=== PATIENT | male | born 1990 | race Caucasian/White ===

== ENCOUNTER 2016-07-14 22:41 | Emergency (ER) | payer MEDICARE ==
[2016-07-14 23:43] LABS: BASOPHILS 0.3 % (0-2); HEMATOCRIT 43.7 % (42.0-54.0); HEMOGLOBIN 15.1 g/dL (13.5-17.5); IMMATURE GRANULOCYTES 0.2 % (0-5); LYMPHOCYTES 54.8 % (15-50); MCHC 34.6 g/dL (31.0-37.0); MCV 86.7 fL (80.0-100.0); MEAN PLATELET VOLUME 11.5 fL (7.4-10.4); NEUTROPHILS 33.7 % (40-80); PLATELET COUNT 166 10x3/uL (130-400); RBC 5.04 10x6/uL (4.20-6.10); RDW 12.4 % (11.5-14.5); WBC 6.3 10x3/uL (4.8-10.8)
[2016-07-14 23:52] LABS: CALC OSMOLALITY 280 mosm/kg (275-300); CALCIUM 8.7 mg/dL (8.5-10.1); CARBON DIOXIDE 27.7 mmol/L (21.0-32.0); CHLORIDE - SERUM 103 mmol/L (98-107); GLUCOSE 109 mg/dL (74-106); POTASSIUM - SERUM 3.9 mmol/L (3.5-5.1); SODIUM 140 mmol/L (136-145); UREA NITROGEN 16 mg/dL (7-18); eGFR NON AFRICAN AMERICAN > 90 mL/min (90-120)
== END 2016-07-15 00:43 | disposition home or self-care (01) ==
LOC: D.ER 22:41
PROVIDERS: Family Medicine
DX: I10 Essential (primary) hypertension (principal)

== ENCOUNTER 2018-11-10 07:06 | Emergency (ER) | payer MEDICARE ==
[~2018-11-10] VITALS: Ht 167.6 cm; Wt 113.6 kg
[2018-11-10 07:10] VITALS: BP 129/80; Ht 167.6 cm; Wt 113.6 kg
[2018-11-10] MEDS ORDERED: ATIVAN1 MG PO (07:10)
[2018-11-10] MEDS ORDERED: KLONOPIN1 MG PO (07:11)
== END 2018-11-10 08:33 | disposition home or self-care (01) ==
LOC: D.ER 07:06
DX: F41.9 Anxiety disorder, unspecified (principal); R42 Dizziness and giddiness